=== PATIENT | male | born 1990 | race Caucasian/White ===

== ENCOUNTER 2017-03-24 08:24 | Emergency (ER) | payer OTHER ==
[~2017-03-24] VITALS: Ht 175.3 cm; Wt 61.2 kg
[2017-03-24] MEDS ORDERED: AMOXICILLIN 50500 MG PO (08:38)
[2017-03-24] MEDS ORDERED: FLEXERIL PO (08:58)
[2017-03-24] MEDS ORDERED: HYDROCODON-ACE1 EAC7 PO (08:58)
[2017-03-24 09:00] VITALS: BP 139/93
== END 2017-03-24 09:13 | disposition home or self-care (01) ==
LOC: M.ERS 08:24
DX: M54.5 Low back pain (principal); M54.2 Cervicalgia; W00.0XXA Fall on same level due to ice and snow, initial encounter; Y93.89 Activity, other specified; Y92.89 Other specified places as the place of occurrence of the external cause; Y99.8 Other external cause status